=== PATIENT | female | born 1965 | race Caucasian/White ===

== ENCOUNTER 2018-12-09 15:02 | Inpatient (IN) | payer OTHER ==
[2018-12-06 17:36] VITALS: BMI 27.4
[~2018-12-09 15:02] MED LIST: BENZOIN TINCTURE SWABSTICK TP ONE; HEPARIN NA (PORCINE) 5,000 UNITS/ML 1ML VIAL ONE; THROMBIN (BOVINE) 5,000 UNIT VIAL TP ONE
[2018-12-09] MEDS ORDERED: fentaNYL CITRATE 250 MCG/5 ML VIAL ONE ×2 (15:07→15:46)
[2018-12-09] MEDS ORDERED: PROPOFOL 20 ML ONE ×7 (15:08→17:58)
[2018-12-09] MEDS ORDERED: SUCCINYLCHOLINE CHLORIDE 200 MG/10 ML VIAL ONE (15:08)
[2018-12-09] MEDS ORDERED: MIDAZOLAM HCL 2 MG/2 ML SINGLE DOSE VIAL ONE ×2 (15:08)
[2018-12-09] MEDS ORDERED: ceFAZolin SODIUM 1 GM VIAL IVPB ONE (15:35)
[2018-12-09] MEDS ORDERED: VANCOMYCIN 1,000 MG VIAL (RESTRICTED TO ID ONLY) ONE (15:56)
[2018-12-09] MEDS ORDERED: VANCOMYCIN 1,000 MG VIAL (RESTRICTED TO ID ONLY) IVPB ONE (16:03)
[2018-12-09] MEDS ORDERED: DEXAMETHASONE SOD PHOSPHATE 4 MG/1 ML VIAL ONE ×2 (16:08→18:13)
[2018-12-09] MEDS ORDERED: ceFAZolin SODIUM 1 GM VIAL ONE (16:27)
[2018-12-09] MEDS ORDERED: TRANEXAMIC ACID 1000 MG/10 ML VIAL ONE (16:39)
[2018-12-09] MEDS ORDERED: THROMBIN (BOVINE) 5,000 UNIT VIAL TP ONE (18:05)
--- NOTE | 2018-12-09 18:45 | PN ---
Progress Note (short form) - Note Progress Note: 53F s/p C6-C7 anterior cervical discectomy, decompression and instrumented fusion POD #0. -Admit to ICU x 24 hrs. for airway observation; OK to discharge home or downgrade to floor or discharge home 12/09/2018 if airway stable. -Maintain head of bed 45-60 degrees. -Pain medication: per anaesthesia team; no REHAB THERAPY MANAGER; NO NSAID's. -DVT PPx: -Mechanical only: OSWALDO's, SCD's. -Post-op Ancef x 2 doses. -f/u AM labs. -Incentive spirometry. -PT/OT/Rehab, OOB. -WBAT B/L UE & LE. -d/c Campo catheter at midnight; f/u TOV (8 hours max). -Keep dressing clean & dry. -No heavy lifting, bending or twisting. -Advance diet as tolerated. -B/L UE & LE NV checks. -Care per ICU & primary medical hospitalist teams. -Discharge planning: f/u [facility] [place] office Sunday12/20/2018; call for appointment; . Juaquin Christensen MD (Orthopaedic Surgery).
--- NOTE | 2018-12-09 18:48 | OP ---
Operative Note - Note: Operative Date: 12/09/18 Pre-Operative Diagnosis: 1. C6-C7 intervertebral disc disorder (herniation) with upper extremity radiculopathy. 2. C6-C7 stenosis with neurogenic claudication and myelopathy. 3. Segmental instability C6-C7. 4. Disc osteophyte complex C6-C7 Operation: C6-C7 anterior cervical discectomy and instrumented fusion Post-Operative Diagnosis: Same as Pre-op Surgeon: Juaquin Christensen College Advisor: King Christensen Anesthesiologist/TUB CHUCKER: Maral Olivarez Anesthesia: General Specimens Removed: C6-C7 disc Estimated Blood Loss (mls): 150 Fluid Volume Replaced (mls): 1,200 (Crystalloid) Operative Report Dictated: Yes
[2018-12-09] MEDS: LACTATED RINGERS SOLUTION 1,000 ML IV SCH (19:00)
[2018-12-09] MEDS ORDERED: oxyCODONE HCL 5 MG TABLET PO PRN (19:00)
[2018-12-09] MEDS ORDERED: ONDANSETRON 4 MG/2 ML VIAL IVPUSH PRN (19:00)
--- NOTE | 2018-12-09 19:48 | CONSULT ---
Consultation: REQUESTING PROVIDER: CONSULT REQUEST: We have been asked to medically evaluate this patient for ( post op care---ICU admission). HISTORY OF PRESENT ILLNESS: Patient is still drowsy from anesthesia, unable to provide detailed history. Patient is a 53 year old female presented to the ED for an elective surgery for cervical stenosis. Patient brought to the ICU for post op care. PAST MEDICAL HISTORY: Diabetes Mellitus, HTN, chronic back pain ALLERGIES: NKDA PAST SURGICAL HISTORY: Back surgery SOCIAL HISTORY: Smoking- Denies Alcohol- Denies Drugs- Denies OCCUPATION: Housewife FAMILY HISTORY: Non contributory TRAVEL: None REVIEW OF SYSTEMS: CONSTITUTIONAL: Absent: fever, chills, diaphoresis, generalized weakness, malaise, loss of appetite, weight change HEENT: Absent: rhinorrhea, nasal congestion, throat pain, throat swelling, difficulty swallowing, mouth swelling, ear pain, eye pain, visual changes CARDIOVASCULAR: Absent: chest pain, syncope, palpitations, irregular heart rate, lightheadedness , peripheral edema RESPIRATORY: Absent: cough, shortness of breath, dyspnea with exertion, orthopnea, wheezing, stridor, hemoptysis GASTROINTESTINAL: Absent: abdominal pain, abdominal distension, nausea, vomiting, diarrhea, constipation, melena, hematochezia GENITOURINARY: Absent: dysuria, frequency, urgency, hesitancy, hematuria, flank pain, genital pain MUSCULOSKELETAL: Present: Pain at the surgical site Absent: myalgia, arthralgia, joint swelling, back pain, neck pain SKIN: Absent: rash, itching, pallor HEMATOLOGIC/IMMUNOLOGIC: Absent: easy bleeding, easy bruising, lymphadenopathy, frequent infections ENDOCRINE: Absent: unexplained weight gain, unexplained weight loss, heat intolerance, cold intolerance NEUROLOGIC: Absent: headache, focal weakness or paresthesias, dizziness, unsteady gait, seizure, mental status changes, bladder or bowel incontinence PSYCHIATRIC: Absent: anxiety, depression, suicidal or homicidal ideation, hallucinations. PHYSICAL EXAMINATION Vital Signs - 24 hr 12/09/18 12/09/18 12/09/18 11:11 18:52 19:00 Temperature 98.5 F 99.2 F Pulse Rate 90 110 H 108 H Respiratory 20 14 15 Rate Blood Pressure 126/73 159/89 152/70 O2 Sat by Pulse 98 95 Oximetry (%) 12/09/18 12/09/18 12/09/18 19:15 19:30 19:46 Temperature Pulse Rate 100 H 109 H 106 H Respiratory 12 12 12 Rate Blood Pressure 163/88 160/92 150/78 O2 Sat by Pulse 100 99 Oximetry (%) GENERAL: Middle aged obese female, lying in bed comfortably, drowsy from anesthesia, in no acute distress, dodd in place. EYES: EOM intact, no pallor or icterus. NECK: Surgical dressing applied over the surgical site. LUNGS: B/L lungs clear, no added sounds. HEART: Regular rate and rhythm, normal S1 and S2 without murmur. ABDOMEN: Soft, nontender, no organomegaly, Hypoactive BS. UPPER EXTREMITIES: No peripheral edema. LOWER EXTREMITIES: No peripheral edema. NEUROLOGICAL: No facial droop. Normal speech. SKIN: No rashes or lesions. Laboratory Results - last 24 hr 12/09/18 12/09/18 12/09/18 10:21 10:22 10:46 POC Glucometer 136 Urine HCG, Qual Negative Blood Type O POSITIVE Antibody Screen Negative 12/09/18 13:54 POC Glucometer Urine HCG, Qual Blood Type O POSITIVE Antibody Screen Active Medications Generic Name Dose Route Start Last Admin Trade Name Freq PRN Reason Stop Dose Admin Cefazolin Sodium 1 gm in 50 mls @ 100 mls/hr 12/10/18 01:00 Ancef 1 Gm Premixed Ivpb - IVPB 12/10/18 09:29 Q8H [facility] Lactated Ringer's 1,000 mls @ 125 mls/hr 12/09/18 19:00 Lactated Ringers Solution IV ASDIR [facility] Lisinopril 10 mg 12/10/18 10:00 Prinivil PO DAILY [facility] Metformin HCl 750 mg 12/10/18 07:00 Glucophage Xr - PO ACBK [facility] Ondansetron HCl 4 mg 12/09/18 19:00 Zofran Injection IVPUSH Q6H PRN NAUSEA AND/OR VOMITING Oxycodone HCl 5 mg 12/09/18 19:00 Roxicodone - PO Q4H PRN PAIN LEVEL 1-5 Oxycodone HCl 10 mg 12/09/18 19:00 Roxicodone - PO Q4H PRN PAIN LEVEL 6-10 ASSESSMENT/PLAN: Patient is a 53 year old female presented to the ED for an elective surgery for cervical stenosis. # Cervical stenosis s/p C6-C7 anterior cervical discectomy and instrumented fusion---0 C6-C7 intervertebral disc disorder (herniation) with upper extremity radiculopathy; C6-C7 stenosis with neurogenic claudication and myelopathy. Segmental instability C6-C7 ;Disc osteophyte complex C6-C7 EBL: 150 ml, in the OR urinary output 150 mls, post op 300 mls Bridgette-operatively 1200 mls of LR, ancef and a dose of Vancomycin was given in the OR. Post op vitals: BP 120/80 mmHg, HR 92 bpm, Spo2- 98 %, afebrile Continue IV LR @ 125 mls/hr Zofran for nausea Oxycodone 10mg and 5mg Q4H PRN for pain control Seen by Dr. Christensen, recommended IV Toradol 15 mg stat and at 4 am tomorrow. Incentive spirometer OOB to chair in AM Physical therapy in AM Advance diet once BS heard. # Diabetes Mellitus Hold Metformin. Start Insulin sliding scale. Finger stick glucose monitoring Watch for hypoglycemic episodes # HTN Patient's family to bring the names of the medication tomorrow. # FEN IV LR @ 125 mls.hr Electrolytes to be done in AM NPO, advance diet once BS heard # Prophylaxis For DVT: SCDs, no chemical prophylaxis For GI; Not indicated # Code Status: Full Code # Dispo: Continue to monitor in ICU. Illness, Investigation and Plan of care explained to the patient. She verbalized understanding. Silke Renee, PGY-3. Dispo: We will continue to follow the patient. Thank you for this consultative opportunity.
[2018-12-09] MEDS: oxyCODONE HCL 5 MG TABLET PO PRN (21:28)
[2018-12-09] MEDS ORDERED: KETOROLAC TROMETHAMINE 30 MG/1 ML VIAL IVPUSH ONE (22:00)
[2018-12-10] MEDS: CEFAZOLIN 1 GM/D5W 1 GM/50 ML BAG IVPB SCH ×2 (00:29→09:52)
[2018-12-10] MEDS: INSULIN SLIDING SCALE (NOVOLOG) 1 VIAL SQ SCH ×3 (00:37→11:21)
--- NOTE | 2018-12-10 01:50 | OP ---
DATE OF OPERATION: 12/09/2018 SURGEON: Juaquin Christensen MD CRATING AND MOVING ESTIMATOR: King Christensen MD PREOPERATIVE DIAGNOSIS: C6-C7 osteophyte disk complex prolapse with right-sided C7 radiculopathy. POSTOPERATIVE DIAGNOSIS: C6-C7 osteophyte disk complex prolapse with right-sided C7 radiculopathy. OPERATION PERFORMED: 1. Anterior cervical diskectomy. 2. Insertion of interbody cage with biomechanical device. 3. Anterior arthrodesis of C6-C7. 4. Partial corpectomy of C6 and C7. 5. Anterior plating of C6 and C7. ANESTHESIA: General. ANTIBIOTICS GIVEN: Kefzol 2 g and 1 g vancomycin preoperative. DESCRIPTION OF PROCEDURE: Patient was identified. Imaging was available for intraoperative evaluation. A routine wound drape applied. An incision was made in the lines of Carolyn just below the level of the cricothyroid interval. The dissection was taken through the subcutaneous fat and platysma. Anterior jugular veins were ligated appropriately. The longitudinal dissection and deep to the sub-invasive layer of fascia, with digital palpation, the interval between the viscera and vessels were entered. This enabled accurate delineation of the anterior vertebral bodies between the raphe of the longus coli. A marking pin was placed in C4-C5. A lateral x-ray confirmed the position. We then counted down to the C6-C7 disc appropriately. The soft tissue off of the anterior body of C6 and C7 was removed using unipolar Bovie. Medial and lateral retractors were placed. Two [place] pins were placed, 1 in the body of C6 and 1 in the body of C7 and repeat lateral fluoroscopic x-ray confirmed the correct levels for dissection. Using curettes, the disk material was resected completely. The rectangle of the actual interbody space was created with a bashir-tipped Midas Darrel bur. The burring was right down to the posterior longitudinal ligament. Once this had been completed, further partial corpectomy was then performed by resecting part of the body of C6 and part of the body of C7. Distraction enabled us to easily seat a size 9 Fortilink cage. This was filled with biologic bone material (allograft). Once this had been completed, the distraction was released. This enabled solid fixation of the actual cage within the interbody space. This was tested appropriately. Once this had been completed and well-seated, the plate size 14 precision simplistic plate with 4 precision screws inserted. Solid fixation achieved. The screws were locked into position with the locking device on the plates. Wounds were thoroughly lavaged. Wounds were completely dry. Closure: Subcutaneous tissue with 2-0 Vicryl, skin with 3-0 Monocryl and Steri-Strips. No complications. MD SUDEEP Leroy/[id number]
[2018-12-10] MEDS: LACTATED RINGERS SOLUTION 1,000 ML IV SCH (03:21)
[2018-12-10] MEDS ORDERED: KETOROLAC TROMETHAMINE 30 MG/1 ML VIAL IVPUSH ONE (04:00)
[2018-12-10] MEDS: oxyCODONE HCL 5 MG TABLET PO PRN ×3 (05:57→15:31)
[2018-12-10 06:56] LABS: HEMATOCRIT 36.8 % (32.4-45.2); HEMOGLOBIN 12.8 GM/dL (10.7-15.3); MCH 26.2 pg (25.7-33.7); MCHC 34.8 g/dl (32.0-36.0); MEAN CELL VOLUME 75.1 fl (80-96); PLATELET COUNT 290 K/MM3 (134-434); RDW 15.5 % (11.6-15.6); WHITE BLOOD COUNT 11.6 K/mm3 (4.0-10.0)
[2018-12-10 07:24] LABS: ALBUMIN 3.8 g/dl (3.4-5.0); ALK PHOS 91 U/L (45-117); ANION GAP 8 MMOL/L (8-16); BILIRUBIN,TOTAL 0.6 mg/dL (0.2-1); BLOOD UREA NITROGEN 9 mg/dL (7-18); CHLORIDE 102 mmol/L (98-107); CO2 28 mmol/L (21-32); CREATININE 0.6 mg/dL (0.55-1.3); GLUCOSE,RANDOM 134 mg/dL (74-106); PHOSPHOROUS 3.9 mg/dL (2.5-4.9); SGOT/AST 15 U/L (15-37); SGPT/ALT 24 U/L (13-61); SODIUM 138 mmol/L (136-145); TOT PROT 7.3 g/dl (6.4-8.2)
[2018-12-10 07:53] LABS: INR 1.13 (0.83-1.09); PROTHROMBIN TIME (PATIENT) 13.3 SEC (9.7-13.0)
--- NOTE | 2018-12-10 08:09 | PN ---
Physical Exam: SUBJECTIVE: Patient seen and examined at bedside, reported mild neck pain, denied nausea, vomiting, bowel movement, passing of gas. OBJECTIVE: Vital Signs Period Temp Pulse Resp BP Sys/Coles Pulse Ox Last 24 Hr 98 F-99.2 F 89-110 10-20 126-167/70-92 95-100 GENERAL: The patient is awake, alert, and fully oriented, in no acute distress. HEAD: Normal with no signs of trauma. EYES: PERRL, extraocular movements intact, sclera anicteric, conjunctiva clear. No ptosis. ENT: Ears normal, nares patent, oropharynx clear without exudates, moist mucous membranes. NECK: Trachea midline, full range of motion, supple. gauze dressing to anterior neck, no surrounding erythema, no discharge. LUNGS: Breath sounds equal, clear to auscultation bilaterally, no wheezes, no crackles, no accessory muscle use. HEART: Regular rate and rhythm, S1, S2 without murmur, rub or gallop. ABDOMEN: Soft, nontender, nondistended, normoactive bowel sounds, no guarding, no rebound, no hepatosplenomegaly, no masses. EXTREMITIES: 2+ pulses, warm, well-perfused, no edema. NEUROLOGICAL: Cranial nerves II through XII grossly intact. Moves all fours. sensation intact throughout.Normal speech, gait not observed. PSYCH: Normal mood, normal affect. SKIN: Warm, dry, normal turgor, no rashes or lesions noted Laboratory Results - last 24 hr 12/09/18 12/09/18 12/09/18 10:21 10:22 10:46 WBC RBC Hgb Hct MCV MCH MCHC RDW Plt Count MPV PT with INR INR Sodium Potassium Chloride Carbon Dioxide Anion Gap BUN Creatinine Creat Clearance w eGFR POC Glucometer 136 Random Glucose Calcium Phosphorus Magnesium Total Bilirubin AST ALT Alkaline Phosphatase Total Protein Albumin Urine HCG, Qual Negative Blood Type O POSITIVE Antibody Screen Negative 12/09/18 12/09/18 12/10/18 13:54 19:50 00:33 WBC RBC Hgb Hct MCV MCH MCHC RDW Plt Count MPV PT with INR INR Sodium Potassium Chloride Carbon Dioxide Anion Gap BUN Creatinine Creat Clearance w eGFR POC Glucometer 185 201 Random Glucose Calcium Phosphorus Magnesium Total Bilirubin AST ALT Alkaline Phosphatase Total Protein Albumin Urine HCG, Qual Blood Type O POSITIVE Antibody Screen 12/10/18 12/10/1812/10/19 05:26 05:30 05:30 WBC 11.6 H RBC 4.90 Hgb 12.8 Hct 36.8 MCV 75.1 L MCH 26.2 MCHC 34.8 RDW 15.5 Plt Count 290 MPV 9.0 PT with INR 13.30 H INR 1.13 H Sodium Potassium Chloride Carbon Dioxide Anion Gap BUN Creatinine Creat Clearance w eGFR POC Glucometer 156 Random Glucose Calcium Phosphorus Magnesium Total Bilirubin AST ALT Alkaline Phosphatase Total Protein Albumin Urine HCG, Qual Blood Type Antibody Screen 12/10/18 05:30 WBC RBC Hgb Hct MCV MCH MCHC RDW Plt Count MPV PT with INR INR Sodium 138 Potassium 4.0 Chloride 102 Carbon Dioxide 28 Anion Gap 8 BUN 9 Creatinine 0.6 Creat Clearance w eGFR 104.57 POC Glucometer Random Glucose 134 H Calcium 9.0 Phosphorus 3.9 Magnesium 2.0 Total Bilirubin 0.6 AST 15 ALT 24 Alkaline Phosphatase 91 Total Protein 7.3 Albumin 3.8 Urine HCG, Qual Blood Type Antibody Screen Active Medications Generic Name Dose Route Start Last Admin Trade Name Freq PRN Reason Stop Dose Admin Cefazolin Sodium 1 gm in 50 mls @ 100 mls/hr 12/10/18 01:00 12/10/18 00:29 Ancef 1 Gm Premixed Ivpb - IVPB 12/10/18 09:29 100 mls/hr Q8H [facility] Administration Lactated Ringer's 1,000 mls @ 125 mls/hr 12/09/18 19:00 12/10/18 03:21 Lactated Ringers Solution IV 125 mls/hr ASDIR [facility] Administration Insulin Aspart 0 vial 12/09/18 22:00 12/10/18 06:51 Novolog Vial Sliding Scale - SQ 2 units ACHS [facility] Administration Protocol Lisinopril 10 mg 12/10/18 10:00 Prinivil PO DAILY [facility] Ondansetron HCl 4 mg 12/09/18 19:00 Zofran Injection IVPUSH Q6H PRN NAUSEA AND/OR VOMITING Oxycodone HCl 5 mg 12/09/18 19:00 Roxicodone - PO Q4H PRN PAIN LEVEL 1-5 Oxycodone HCl 10 mg 12/09/18 19:00 12/10/18 05:57 Roxicodone - PO 10 mg Q4H PRN Administration PAIN LEVEL 6-10 ASSESSMENT/PLAN: Patient is a 53 year old female presented to the ED for an elective surgery for cervical stenosis. NEURO # Cervical stenosis s/p C6-C7 anterior cervical discectomy and instrumented fusion---1 C6-C7 intervertebral disc disorder (herniation) with upper extremity radiculopathy; C6-C7 stenosis with neurogenic claudication and myelopathy. Segmental instability C6-C7 ;Disc osteophyte complex C6-C7 Bridgette-operatively 1200 mls of LR, ancef and a dose of Vancomycin was given in the OR. Continue IV LR @ 125 mls/hr Zofran for nausea Oxycodone 10mg and 5mg Q4H PRN for pain control Seen by Dr. Christensen, recommended IV Toradol 15 mg stat and at 4 am today Incentive spirometer OOB to chair in AM Physical therapy Advance diet once BS heard. Positive bowel sounds today. ENDO # HX OF DIABETES MELLITUS Hold Metformin Insulin sliding scale. Finger stick glucose monitoring Watch for hypoglycemic episodes FEN IV LR @ 125 mls.hr Monitor electrolytes Diabetic diet PPX For DVT: SCDs, no chemical prophylaxis For GI; Not indicated Code Status: Full Code DISPO DC by primary team Visit type - Emergency Visit Emergency Visit: Yes Care time: The patient presented to the Emergency Department on the above date and was hospitalized for further evaluation of their emergent condition. - New Patient This patient is new to me today: Yes Date on this admission: 12/10/18 - Critical Care Critical Care patient: Yes Total Critical Care Time (in minutes): 35 Critical Care Statement: The care of this patient involved high complexity decision making to prevent further life threatening deterioration of the patient 's condition and/or to evaluate & treat vital organ system(s) failure or risk of failure. - Discharge Referral Referred to [facility] Med P.C.: No
--- NOTE | 2018-12-10 09:23 | PN ---
Progress Note (short form) - Note Progress Note: Pt doing well s/p C6-7 ACDF. Doing well, minimal pain, no other complaints. No apparent anesthetic issues/complications
[2018-12-10] MEDS ORDERED: METFORMIN HCL 750 MG PO SCH (10:00)
[2018-12-10] MEDS ORDERED: LISINOPRIL 10 MG TABLET (FP) PO SCH (10:00)
--- NOTE | 2018-12-10 10:02 | PN ---
Physical Exam: SUBJECTIVE: Patient seen and examined at bedside. No overnight events. No new complaints. POD #1 s/p C6-C7 anterior cervical discectomy and instrumented fusion. Pain well controlled. Denies Cp,YADAV, SOB, palpitations, abdominal pain, nausea or vomiting. OBJECTIVE: Vital Signs Period Temp Pulse Resp BP Sys/Coles Pulse Ox Last 24 Hr 98 F-99.2 F 89-110 10-20 126-167/70-92 95-100 GENERAL: Awake and alert, NAD HEAD: NCAT EYES: PERRL, EOMI, sclera anicteric, conjunctiva clear. No ptosis. ENT:moist mucous membranes. NECK: supple, limited ROM 2/2 recent surgery, wound dressing appears C/D/I LUNGS: CTAB, no wheezes, no crackles, no accessory muscle use. HEART: RRR, S1, S2 without murmur, rub or gallop. ABDOMEN: Soft, NTND, NABS, no guarding, no rebound, no hepatosplenomegaly, no masses. EXTREMITIES: 2+ pulses, warm, well-perfused, no edema. NEUROLOGICAL: Cranial nerves II through XII grossly intact. Normal speech, gait not observed. PSYCH: Normal mood, normal affect. SKIN: Warm, dry, normal turgor, no rashes or lesions noted Laboratory Results - last 24 hr 12/09/18 12/09/18 12/09/18 10:21 10:22 10:46 WBC RBC Hgb Hct MCV MCH MCHC RDW Plt Count MPV PT with INR INR Sodium Potassium Chloride Carbon Dioxide Anion Gap BUN Creatinine Creat Clearance w eGFR POC Glucometer 136 Random Glucose Calcium Phosphorus Magnesium Total Bilirubin AST ALT Alkaline Phosphatase Total Protein Albumin Urine HCG, Qual Negative Blood Type O POSITIVE Antibody Screen Negative 12/09/18 12/09/18 12/10/18 13:54 19:50 00:33 WBC RBC Hgb Hct MCV MCH MCHC RDW Plt Count MPV PT with INR INR Sodium Potassium Chloride Carbon Dioxide Anion Gap BUN Creatinine Creat Clearance w eGFR POC Glucometer 185 201 Random Glucose Calcium Phosphorus Magnesium Total Bilirubin AST ALT Alkaline Phosphatase Total Protein Albumin Urine HCG, Qual Blood Type O POSITIVE Antibody Screen 12/10/18 12/10/18 12/10/18 05:26 05:30 05:30 WBC 11.6 H RBC 4.90 Hgb 12.8 Hct 36.8 MCV 75.1 L MCH 26.2 MCHC 34.8 RDW 15.5 Plt Count 290 MPV 9.0 PT with INR 13.30 H INR 1.13 H Sodium Potassium Chloride Carbon Dioxide Anion Gap BUN Creatinine Creat Clearance w eGFR POC Glucometer 156 Random Glucose Calcium Phosphorus Magnesium Total Bilirubin AST ALT Alkaline Phosphatase Total Protein Albumin Urine HCG, Qual Blood Type Antibody Screen 12/10/18 05:30 WBC RBC Hgb Hct MCV MCH MCHC RDW Plt Count MPV PT with INR INR Sodium 138 Potassium 4.0 Chloride 102 Carbon Dioxide 28 Anion Gap 8 BUN 9 Creatinine 0.6 Creat Clearance w eGFR 104.57 POC Glucometer Random Glucose 134 H Calcium 9.0 Phosphorus 3.9 Magnesium 2.0 Total Bilirubin 0.6 AST 15 ALT 24 Alkaline Phosphatase 91 Total Protein 7.3 Albumin 3.8 Urine HCG, Qual Blood Type Antibody Screen Active Medications Generic Name Dose Route Start Last Admin Trade Name Freq PRN Reason Stop Dose Admin Lactated Ringer's 1,000 mls @ 125 mls/hr 12/09/18 19:00 12/10/18 03:21 Lactated Ringers Solution IV 125 mls/hr ASDIR [facility] Administration Insulin Aspart 0 vial 12/09/18 22:00 12/10/18 06:51 Novolog Vial Sliding Scale - SQ 2 units ACHS [facility] Administration Protocol Lisinopril 10 mg 12/10/18 10:00 12/10/18 09:52 Prinivil PO 10 mg DAILY [facility] Administration Ondansetron HCl 4 mg 12/09/18 19:00 Zofran Injection IVPUSH Q6H PRN NAUSEA AND/OR VOMITING Oxycodone HCl 5 mg 12/09/18 19:00 Roxicodone - PO Q4H PRN PAIN LEVEL 1-5 Oxycodone HCl 10 mg 12/09/18 19:00 12/10/18 05:57 Roxicodone - PO 10 mg Q4H PRN Administration PAIN LEVEL 6-10 ASSESSMENT/PLAN: Patient is a 53 year old female presented to the ED for an elective surgery for cervical stenosis. Problem List - Problems (1) Cervical stenosis of spinal canal Assessment/Plan: s/p C6-C7 anterior cervical discectomy and instrumented fusion * Continue IV LR @ 125 mls/hr * Zofran for nausea * Oxycodone 10mg and 5mg Q4H PRN for pain control * Seen by Dr. Christensen, recommended IV Toradol 15 mg stat and at 4 am tomorrow. * Incentive spirometer * OOB to chair in AM * Physical therapy in AM * Advance diet once BS heard. (2) DM type 2 (diabetes mellitus, type 2) Assessment/Plan: * Metformin held * ADA diet * BGM TICAC * ISS TIDAC (3) HTN (hypertension) (4) DVT prophylaxis Assessment/Plan: SCD's bilat. * As per surgery mechanical PPx only. Visit type - Emergency Visit Emergency Visit: Yes Care time: The patient presented to the Emergency Department on the above date and was hospitalized for further evaluation of their emergent condition. - New Patient This patient is new to me today: Yes Date on this admission: 12/11/18 - Critical Care Critical Care patient: Yes Total Critical Care Time (in minutes): 45 Critical Care Statement: The care of this patient involved high complexity decision making to prevent further life threatening deterioration of the patient 's condition and/or to evaluate & treat vital organ system(s) failure or risk of failure.
[2018-12-10] MEDS ORDERED: oxyCODONE HCL 5 MG TABLET PO PRN ×2 (15:54)
[2018-12-10] MEDS ORDERED: ONDANSETRON 4 MG/2 ML VIAL IVPUSH PRN (15:54)
[2018-12-10] MEDS ORDERED: INSULIN SLIDING SCALE (NOVOLOG) 1 VIAL SQ SCH (16:30)
--- NOTE | 2018-12-10 17:53 | DS ---
Physical Exam: SUBJECTIVE: Patient seen and examined OBJECTIVE: Vital Signs Period Temp Pulse Resp BP Sys/Coles Pulse Ox Last 24 Hr 98 F-99.2 F 89-110 10-18 134-167/70-92 95-100 PHYSICAL EXAM GENERAL: The patient is awake, alert, and fully oriented, in no acute distress. NECK: Anterior dressing clean and dry. LUNGS: Breath sounds equal, clear to auscultation bilaterally, no wheezes, no crackles, no accessory muscle use. HEART: Regular rate and rhythm, S1, S2 without murmur, rub or gallop. ABDOMEN: Soft, nontender, nondistended, normoactive bowel sounds, no guarding, no rebound, no hepatosplenomegaly, no masses. EXTREMITIES: 2+ pulses, warm, well-perfused, no edema. LABS Laboratory Results - last 24 hr 12/09/18 12/10/18 12/10/18 19:50 00:33 05:26 WBC RBC Hgb Hct MCV MCH MCHC RDW Plt Count MPV PT with INR INR Sodium Potassium Chloride Carbon Dioxide Anion Gap BUN Creatinine Creat Clearance w eGFR POC Glucometer 185 201 156 Random Glucose Calcium Phosphorus Magnesium Total Bilirubin AST ALT Alkaline Phosphatase Total Protein Albumin 12/10/18 12/10/18 12/10/18 05:30 05:30 05:30 WBC 11.6 H RBC 4.90 Hgb 12.8 Hct 36.8 MCV 75.1 L MCH 26.2 MCHC 34.8 RDW 15.5 Plt Count 290 MPV 9.0 PT with INR 13.30 H INR 1.13 H Sodium 138 Potassium 4.0 Chloride 102 Carbon Dioxide 28 Anion Gap 8 BUN 9 Creatinine 0.6 Creat Clearance w eGFR 104.57 POC Glucometer Random Glucose 134 H Calcium 9.0 Phosphorus 3.9 Magnesium 2.0 Total Bilirubin 0.6 AST 15 ALT 24 Alkaline Phosphatase 91 Total Protein 7.3 Albumin 3.8 12/10/18 12/10/18 11:09 17:04 WBC RBC Hgb Hct MCV MCH MCHC RDW Plt Count MPV PT with INR INR Sodium Potassium Chloride Carbon Dioxide Anion Gap BUN Creatinine Creat Clearance w eGFR POC Glucometer 120 173 Random Glucose Calcium Phosphorus Magnesium Total Bilirubin AST ALT Alkaline Phosphatase Total Protein Albumin HOSPITAL COURSE: Date of Admission:12/09/18 Date of Discharge: 12/10/18 Minutes to complete discharge: 30 Discharge Summary Reason For Visit: CERVICAL DISC DISORDER Current Active Problems Cervical stenosis of spinal canal (Chronic) DM type 2 (diabetes mellitus, type 2) (Chronic) HTN (hypertension) (Chronic) Condition: Good - Instructions Diet, Activity, Other Instructions: You were admitted to [facility] on December 08 for C6-C7 anterior cervical discectomy and instrumented fusion done by Dr. Christensen. Post- operatively, you were monitored in the ICU and you did well. You are being discharged home on December 10. A prescription for oxycodone has been sent to [facility]. Please keep the dressing on your neck clean and dry. You should not do any heavy lifting, bending, or twisting. Please call [facility] to schedule a follow-up appointment for SundayDecember 20. Disposition: HOME - Home Medications Comprehensive Discharge Medication List: Ambulatory Orders Lisinopril 10 mg PO DAILY 12/06/18 metFORMIN HCL 750 mg PO DAILY 12/06/18 oxyCODONE HCL [Roxicodone -] 1 tab PO Q4H PRN #30 tablet MDD 6 tabs 12/10/18 - Discharge Referral Referred to [facility] Med P.C.: No
[2018-12-10 18:34] VITALS: BP 141/78; PULSE 99; TEMP 99
[2018-12-11] MEDS ORDERED: LISINOPRIL 10 MG TABLET (FP) PO SCH (10:00)
--- NOTE | 2018-12-11 13:41 | PATH ---
Surgical Pathology Report Patient Name: MARISELA PENNINGTON [facility]. Rec. #: [id number] /Age/Gender: 1965 (Age: 53) / F Account: [id number] Location: AMBULATORY SURG Taken: 12/09/2018 Received: 12/10/2018 Reported: 12/11/2018 Physicians: Juaquin Christensen M.D. Specimen(s) Received DISC C6-C7 Clinical History Cervical disc disorder Final Diagnosis INTERVERTEBRAL DISC, C6-7, PARTIAL EXCISION: PORTIONS OF INTERVERTEBRAL DISC. Electronically Signed Obed Brothers M.D. Gross Description Received in formalin labeled "disc C6-C7," is a 3.0 x 2.3 x 0.3 cm aggregate of vasquez fragments of fibrocartilaginous tissue. A termite control service representative portion is submitted in one cassette. /12/10/2018 saudi12/10/2018
== END 2018-12-10 18:39 | disposition home or self-care (01) | DRG 321 ==
LOC: JICU 15:02 → JASUSAT 15:02 → JICU 19:02 → JSAMEDAYSX 19:02 → JICU 20:25 → JASUSAT 20:26 → JICU 20:27 → UNDOFXSDCSVC 12-10 16:24 → J8W 12-10 16:24 → JICU 12-10 16:24 → J8W 12-10 18:39 → JASUSAT 12-10 18:39
PROVIDERS: ADMIT Orthopaedic Surgery Orthopaedic Surgery of the Spine; ATTEND Orthopaedic Surgery Orthopaedic Surgery of the Spine
PROC: 0RT30ZZ Resection of Cervical Vertebral Disc, Open Approach (ICD-10-PCS; 2018-12-09)
PROC: B01BZZZ Fluoroscopy of Spinal Cord (ICD-10-PCS; 2018-12-09)
PROC: 0RG10A0 Fusion of Cervical Vertebral Joint with Interbody Fusion Device, Anterior Approach, Anterior Column, Open Approach (ICD-10-PCS; principal; 2018-12-09 12:30)
DX: M50.123 Cervical disc disorder at C6-C7 level with radiculopathy (principal); M50.023 Cervical disc disorder at C6-C7 level with myelopathy; I10 Essential (primary) hypertension; E11.42 Type 2 diabetes mellitus with diabetic polyneuropathy; M54.9 Dorsalgia, unspecified; M48.02 Spinal stenosis, cervical region; M53.2X2 Spinal instabilities, cervical region; M25.78 Osteophyte, vertebrae
CPT/HCPCS: 36415; 76000-TC-FY; 80053; 82962; 83735; 84100; 84703; 85027; 85610; 86850; 86900; 86901; 88304-TC; 94760; 97116-GP; 97161-GP; J1644